=== PATIENT | female | born 1990 | race Caucasian/White ===

== ENCOUNTER 2016-11-18 10:43 | Emergency (ER) | payer OTHER ==
[~2016-11-18] VITALS: Ht 157.5 cm; Wt 85.0 kg
[~2016-11-18 10:43] MED LIST: LEVO1TAB33 PO; MULT-506 PO
[2016-11-18 10:58] VITALS: TEMP 37.2; Ht 157.5 cm; Wt 85.0 kg
--- NOTE | 2016-11-18 11:21 | EMERGENCY ROOM VISIT NOTE ---
History Report prepared by Jose De Jesus: Hira Mallory Under the Supervision of: Dr. Steven German M.D. First contact with patient: 11:04 Chief Complaint: ABDOMINAL PAIN Stated Complaint: LOWER ABD PAIN Nursing Triage Summary: pt here with low abd pain x 4 mos. denies diarrhea or n/v. pt states today is worse, is usually worse with period, which she has now. History of Present Illness The patient is a 25 year old female who presents to the Emergency Room with complaints of intermittent lower abdominal pain beginning about 4 months ago. She notes the pain usually occurs 1 week before her period, but adds that it is not always associated with her period. She reports having pain this morning after waking. The patient indicates that today was the first day that her pain was only on her right side. She still has her appendix and gallbladder, and denies any chance of , though she admits to not being on control. She has given in the past. The patient admits to currently having vaginal bleeding, and denies any chance of retaining a tampon. She does not express concern for an STD. Source of History: patient Onset: about 4 months ago Position: abdomen (lower) Quality: other (abdominal pain) Timing: intermittent Note: The patient notes having vaginal bleeding Review of Systems See HPI for pertinent positives & negatives. A total of 10 systems reviewed and were otherwise negative. Past Medical & Surgical No known medical problems. Family History Cancer Hypertension Seizures Social History Smoking Status: Never Smoker Marital Status: Occupation Status: employed Current/Historical Medications Scheduled Multivitamin (Multivitamin), 2 TAB PO DAILY Allergies Coded Allergies: Penicillins (Verified Allergy, Intermediate, SWELLING, 11/18/16) Sulfa Drugs (Verified Allergy, Intermediate, SWELLING, 11/18/16) Sulfamethoxazole (Verified Allergy, Intermediate, SWELLING, 11/18/16) Trimethoprim (Verified Allergy, Intermediate, SWELLING, 11/18/16) Physical Exam Vital Signs Date Time Temp Pulse Resp B/P Pulse Ox O2 Delivery O2 Flow Rate FiO2 11/18/16 13:38 75 18 109/72 98 11/18/16 12:21 74 18 115/74 100 Room Air 11/18/16 12:17 99 11/18/16 10:58 37.2 90 16 130/74 95 Room Air Physical Exam GENERAL: Patient is a healthy-appearing well-nourished HEAD: Normocephalic atraumatic EYES: Ocular movements intact pupils equal and react to light OROPHARYNX mucous membranes are moist no exudates present no erythema or edema present NECK: Supple no nuchal rigidity CHEST: Good equal expansion LUNGS: Clear and equal to auscultation CARDIAC: Normal S1 and S2 ABDOMEN: Right sided pelvic pain. No rebound or guarding. BACK: No CVA tenderness EXTREMITIES: No pain upon palpation normal muscle strength in all groups no clubbing cyanosis or edema NEURO: Patient is following commands is answering questions appropriately. Alert and oriented x3 Cranial Nerves 2-12 grossly intact Medical Decision & Procedures ER Provider Diagnostic Interpretation: Radiology results as stated below per my review and radiologist interpretation: PELVIC ULTRASOUND FINDINGS: The uterus measures 8.8 x 5.3 x 6.4 cm. The endometrium measures 7 mm in thickness. Slight heterogeneity of the myometrium is suboptimally assessed on this transabdominal exam. No discrete uterine lesion is identified. The right ovary measures 3.2 x 2.5 x 2.7 cm and the left measures 4.3 x 2.3 x 2.9 cm. Color flow is identified within each ovary. A small amount of fluid was noted within the pelvis. IMPRESSION: 1. Unremarkable transabdominal pelvic ultrasound. 2. Small amount of fluid within the pelvis which is likely physiologic. Electronically signed by: Raj Bolaños M.D. 11/18/2016 12:56 PM Dictated Date/Time: 11/18/2016 12:54 PM Laboratory Results 11/18/16 11:40 Red Blood Count 4.37, Mean Corpuscular Volume 90.4, Mean Corpuscular Hemoglobin 31.8, Mean Corpuscular Hemoglobin Concent 35.2, Mean Platelet Volume 9.1, Neutrophils (%) (Auto) 66.2, Lymphocytes (%) (Auto) 24.8, Monocytes (%) (Auto) 6.9, Eosinophils (%) (Auto) 1.6, Basophils (%) (Auto) 0.4, Neutrophils # (Auto) 4.47, Lymphocytes # (Auto) 1.68, Monocytes # (Auto) 0.47, Eosinophils # (Auto) 0.11, Basophils # (Auto) 0.03 11/18/16 11:40 Test 11/18/16 11:35 11/18/16 11:40 Urine Color YELLOW Urine Appearance TURBID (CLEAR) Urine pH >= 9.0 (4.5-7.5) Urine Specific [place] 1.021 (1.000-1.030) Urine Protein NEG (NEG) Urine Glucose (UA) NEG (NEG) Urine Ketones NEG (NEG) Urine Occult Blood 2+ (NEG) Urine Nitrite NEG (NEG) Urine Bilirubin NEG (NEG) Urine Urobilinogen NEG (NEG) Urine Leukocyte Esterase SMALL (NEG) Urine WBC (Auto) 5-10 /hpf (0-5) Urine RBC (Auto) 10-30 /hpf (0-4) Urine Hyaline Casts (Auto) 1-5 /lpf (0-5) Urine Epithelial Cells (Auto) >30 /lpf (0-5) Urine Bacteria (Auto) 1+ (NEG) Urine Test NEG (NEG) White Blood Count 6.77 K/uL (4.8-10.8) Red Blood Count 4.37 M/uL (4.2-5.4) Hemoglobin 13.9 g/dL (12.0-16.0) Hematocrit 39.5 % (37-47) Mean Corpuscular Volume 90.4 fL (80-100) Mean Corpuscular Hemoglobin 31.8 pg (25-34) Mean Corpuscular Hemoglobin Concent 35.2 g/dl (32-36) Platelet Count 242 K/uL (130-400) Mean Platelet Volume 9.1 fL (7.4-10.4) Neutrophils (%) (Auto) 66.2 % Lymphocytes (%) (Auto) 24.8 % Monocytes (%) (Auto) 6.9 % Eosinophils (%) (Auto) 1.6 % Basophils (%) (Auto) 0.4 % Neutrophils # (Auto) 4.47 K/uL (1.4-6.5) Lymphocytes # (Auto) 1.68 K/uL (1.2-3.4) Monocytes # (Auto) 0.47 K/uL (0.11-0.59) Eosinophils # (Auto) 0.11 K/uL (0-0.5) Basophils # (Auto) 0.03 K/uL (0-0.2) RDW Standard Deviation 42.1 fL (36.4-46.3) RDW Coefficient of Variation 12.7 % (11.5-14.5) Immature Granulocyte % (Auto) 0.1 % Immature Granulocyte # (Auto) 0.01 K/uL (0.00-0.02) Anion Gap 5.0 mmol/L (3-11) Est Creatinine Clear Calc Drug Dose 135.7 ml/min Estimated GFR () 142.5 Estimated GFR (Non- 122.9 BUN/Creatinine Ratio 14.4 (10-20) Calcium Level 8.6 mg/dl (8.5-10.1) Total Bilirubin 0.6 mg/dl (0.2-1) Direct Bilirubin 0.1 mg/dl (0-0.2) Aspartate Amino Transf (AST/SGOT) 17 U/L (15-37) Alanine Aminotransferase (ALT/SGPT) 24 U/L (12-78) Alkaline Phosphatase 43 U/L (45-117) Total Protein 6.2 gm/dl (6.4-8.2) Albumin 3.3 gm/dl (3.4-5.0) Lipase 221 U/L (73-393) Labs reviewed by ED physician. ED Course 1109: Past medical records reviewed. The patient was evaluated in room C12B. A complete history and physical examination was performed. 1320: Upon reexamination the patient is doing well. I discussed results and treatment plan with the patient. She verbalizes agreement and understanding. The patient is ready for discharge. Medical Decision Differential diagnosis: Etiologies such as appendicitis, diverticulitis, PUD, biliary pathology, UTI, pancreatitis, obstruction, mesenteric ischemia, aortic pathology, infections, inflammatory bowel disease, renal colic, as well as others were entertained. This is a 25-year-old female who presents emergency department complaining of right lower pelvic pain. The pelvic pain seems to come and go in relation to the patient's periods. I raised suspect her that this could be endometriosis and the patient's mother seems familiar with this condition. The patient has been ongoing problem and has not followed up with her primary care physician for the issue. She has a normal CBC normal renal profile normal liver profile normal lipase. She is not . She is not having any urinary symptoms. Based on these findings and using shared medical decision making the patient does not want to subject her substitute CAT scan as I feel the yield will be relatively low due to the patient's soft benign abdomen as well as no elevation in her white blood count. The patient was sent for pelvic ultrasound which did not show any evidence of a cyst. The patient refused pain medication emergency department. She was given normal saline bolus. The patient asked for Zofran at home as well as referral to OB. Patient family were in agreement to the treatment plan. Impression Primary Impression: Pelvic pain Scribe Attestation The scribe's documentation has been prepared under my direction and personally reviewed by me in its entirety. I confirm that the note above accurately reflects all work, treatment, procedures, and medical decision making performed by me. Departure Information Dispostion Home / Self-Care Referrals Jeremiah Maciel M.D. (PCP) Patient Instructions ED Pelvic Pain [facility], My [facility] Additional Instructions Follow up with Dr Mauricio's office You received narcotic or benzodiazepene medication while in the emergency room today. Do not drive, operate heavy machinery, or drink alcohol under the influence of this medication. Take 600 mg Ibuprofen every 6 hours Take 1000 mg Tylenol every 6 hours Radiographs and CTs will be reread by a radiologist in the morning. Culture results are usually available in approx 48 hours You have been examined and treated today on an emergency basis only. This is not a substitute for, or an effort to provide, complete comprehensive medical care. It is impossible to recognize and treat all injuries or illnesses in a single emergency department visit. It is therefore important that you follow up closely with Dr Maciel. Call as soon as possible for an appointment. Thank you for your time and consideration. I look forward to speaking with you again soon. Please don't hesitate to call us if you have any questions.
[2016-11-18 12:07] LABS: BASO % 0.4 %; BASO ABS # 0.03 K/uL (0-0.2); COMPLETE YES; EOS % 1.6 %; HEMATOCRIT 39.5 % (37-47); IG% 0.1 %; LYMPH % 24.8 %; LYMPH ABS # 1.68 K/uL (1.2-3.4); MEAN CELL VOLUME 90.4 fL (80-100); MEAN CORPUSCULAR HEMOGLOBIN 31.8 pg (25-34); MEAN CORPUSCULAR HGB CONC 35.2 g/dl (32-36); MEAN PLATELET VOLUME 9.1 fL (7.4-10.4); MONO % 6.9 %; NEUT % 66.2 %; PLATELET COUNT 242 K/uL (130-400); RED BLOOD COUNT 4.37 M/uL (4.2-5.4); WHITE BLOOD COUNT 6.77 K/uL (4.8-10.8)
[2016-11-18 12:16] LABS: URINE APPEARANCE TURBID (CLEAR); URINE BILIRUBIN NEG (NEG); URINE COLOR YELLOW; URINE EPITHELIAL CELL AUTO >30 /lpf (0-5); URINE NITRITE NEG (NEG); URINE PH >= 9.0 (4.5-7.5); URINE SPECIFIC GRAVITY 1.021 (1.000-1.030); UROBILINOGEN NEG (NEG)
[2016-11-18 12:24] LABS: MANUAL MICROSCOPIC REQUIRED? NO; REVIEW REQ? NO
[2016-11-18 12:28] LABS: BUN/CREATININE RATIO 14.4 (10-20); CALCIUM 8.6 mg/dl (8.5-10.1); CREATININE 0.63 mg/dl (0.60-1.20); POTASSIUM 3.9 mmol/L (3.5-5.1)
--- NOTE | 2016-11-18 12:57 | DIAGNOSTIC IMAGING REPORT ---
PELVIC ULTRASOUND CLINICAL HISTORY: Right sided pelvic pain. COMPARISON STUDY: ultrasound March 11, 2007 TECHNIQUE: Transabdominal sonography of the pelvis was performed. The patient deferred transvaginal imaging. FINDINGS: The uterus measures 8.8 x 5.3 x 6.4 cm. The endometrium measures 7 mm in thickness. Slight heterogeneity of the myometrium is suboptimally assessed on this transabdominal exam. No discrete uterine lesion is identified. The right ovary measures 3.2 x 2.5 x 2.7 cm and the left measures 4.3 x 2.3 x 2.9 cm. Color flow is identified within each ovary. A small amount of fluid was noted within the pelvis. IMPRESSION: 1. Unremarkable transabdominal pelvic ultrasound. 2. Small amount of fluid within the pelvis which is likely physiologic. Electronically signed by: Raj Bolaños M.D. 11/18/2016 12:56 PM Dictated Date/Time: 11/18/2016 12:54 PM
[2016-11-18 13:38] VITALS: BP 109/72; PULSE 75; O2SAT 98
== END 2016-11-18 13:39 | disposition home or self-care (01) ==
LOC: C.EDB 10:44 → C.EDC 13:39
DX: R10.2 Pelvic and perineal pain (principal)

== ENCOUNTER 2017-11-21 01:55 | Emergency (ER) | payer OTHER ==
[~2017-11-21] VITALS: Ht 160 cm; Wt 89.6 kg
[~2017-11-21 01:55] MED LIST changes: -LEVO1TAB33 PO
[2017-11-21 01:59] VITALS: Ht 160 cm; Wt 89.6 kg
[2017-11-21 02:20] VITALS: O2SAT 97
[2017-11-21 02:29] LABS: BASO % 0.3 %; BASO ABS # 0.03 K/uL (0-0.2); EOS ABS # 0.18 K/uL (0-0.5); HEMOGLOBIN 14.7 g/dL (12.0-16.0); IG# 0.01 K/uL (0.00-0.02); LYMPH % 39.5 %; MEAN CELL VOLUME 89.3 fL (80-100); MEAN CORPUSCULAR HGB CONC 35.9 g/dl (32-36); MEAN PLATELET VOLUME 8.6 fL (7.4-10.4); MONO % 6.8 %; NEUT % 51.3 %; NEUT ABS # 4.53 K/uL (1.4-6.5); PLATELET COUNT 249 K/uL (130-400); RED CELL DISTRIBUTION WIDTH CV 12.3 % (11.5-14.5); RED CELL DISTRIBUTION WIDTH SD 39.7 fL (36.4-46.3); WHITE BLOOD COUNT 8.85 K/uL (4.8-10.8)
[2017-11-21 02:56] LABS: ALBUMIN 3.4 gm/dl (3.4-5.0); ALT/SGPT 32 U/L (12-78); AST/SGOT 28 U/L (15-37); BLOOD UREA NITROGEN 13 mg/dl (7-18); CALCIUM 8.7 mg/dl (8.5-10.1); CARBON DIOXIDE 28 mmol/L (21-32); CREATININE 0.69 mg/dl (0.60-1.20); GLUCOSE 88 mg/dl (70-99); POTASSIUM 3.7 mmol/L (3.5-5.1); SODIUM 137 mmol/L (136-145)
[2017-11-21 03:03] LABS: ALKALINE PHOSPHATASE 51 U/L (45-117); TOTAL PROTEIN 6.2 gm/dl (6.4-8.2)
--- NOTE | 2017-11-21 03:10 | EMERGENCY ROOM VISIT NOTE ---
History First contact with patient: 02:02 Chief Complaint: IRREGULAR HEARTBEAT Stated Complaint: SOB,IRREGULAR HEARTBEAT Nursing Triage Summary: pt with intermittent heart palpitations for 2 weeks. worse at night. +SOB with palpitations. pt reports she has PCP appt next week but tonight the symptoms were worse and woke her from sleep. denies hx of cardiac problems. History of Present Illness The patient is a 26 year old female who presents to the Emergency Room with complaints of intermittent palpitations and shortness of breath for the past 2 weeks. No recent travel. Patient is on control. She does not smoke. No family history of blood clots. Patient denies chest pain, fever, chills, exertional dyspnea, prolonged palpitations, recent illness, thyroid problems, abdominal pain, lightheadedness or dizziness. Patient is telling p.o. fluids and food. No excessive caffeine use. Patient does not drink or smoke. No drug use. Review of Systems An 10 system review of systems was completed with positives and pertinent negatives listed in the HPI. Past Medical/Surgical History None Family History Cancer Hypertension Seizures Social History Smoking Status: Never Smoker Smokeless Tobacco Use: No Alcohol Use: none Drug Use: none Marital Status: Housing Status: lives with family Occupation Status: employed Current/Historical Medications No Active Prescriptions or Reported Meds Physical Exam Vital Signs Date Time Temp Pulse Resp B/P (MAP) Pulse Ox O2 Delivery O2 Flow Rate FiO2 11/21/17 02:20 97 Room Air 11/21/17 02:13 83 11/21/17 02:11 97 Room Air 11/21/17 01:59 36.9 77 18 130/84 97 Room Air Physical Exam VITALS: Vitals are noted on the nurse's note and reviewed by myself. Vital signs stable. GENERAL: Pleasant female, in no acute distress, nondiaphoretic, well-developed well-nourished. SKIN: The skin was without rashes, erythema, edema, or bruising. There is no tenting of the skin. Capillary reflex less than 2 seconds. HEAD: Normocephalic atraumatic. EARS: External auditory canals clear, tympanic membranes pearly chatman without erythema or effusion bilaterally. EYES: Pupils equal round and reactive to light and accommodation. Conjunctivae without injection, sclerae without icterus. Extraocular movements intact. NOSE: Patent, turbinates without inflammation or discharge. MOUTH: Mucous membranes moist. Pharynx without erythema or exudate. Uvula midline. Airway patent. Tongue does not deviate. NECK: Supple without nuchal rigidity. No lymphadenopathy. No thyromegaly. Cervical spine is nontender. No JVD. HEART: Regular rate and rhythm without murmurs gallops or rubs. LUNGS: Clear to auscultation bilaterally without wheezes, rales or rhonchi. No retractions or accessory muscle use. ABDOMEN: Positive bowel sounds x 4. Normal tympanic percussion. Soft, nontender, without masses or organomegaly. Bryson sign negative. No guarding or rebound tenderness. No CVA tenderness MUSCULOSKELETAL: No muscle atrophy, erythema, or edema noted. NEURO: Patient was alert and oriented to person place and time. Normal sensation to light and sharp touch. No focal neurological deficits. Medical Decision & Procedures Laboratory Results 11/21/17 02:18 Red Blood Count 4.59, Mean Corpuscular Volume 89.3, Mean Corpuscular Hemoglobin 32.0, Mean Corpuscular Hemoglobin Concent 35.9, Mean Platelet Volume 8.6, Neutrophils (%) (Auto) 51.3, Lymphocytes (%) (Auto) 39.5, Monocytes (%) (Auto) 6.8, Eosinophils (%) (Auto) 2.0, Basophils (%) (Auto) 0.3, Neutrophils # (Auto) 4.53, Lymphocytes # (Auto) 3.50, Monocytes # (Auto) 0.60, Eosinophils # (Auto) 0.18, Basophils # (Auto) 0.03 11/21/17 02:18 Test 11/21/17 02:18 White Blood Count 8.85 K/uL (4.8-10.8) Red Blood Count 4.59 M/uL (4.2-5.4) Hemoglobin 14.7 g/dL (12.0-16.0) Hematocrit 41.0 % (37-47) Mean Corpuscular Volume 89.3 fL (80-100) Mean Corpuscular Hemoglobin 32.0 pg (25-34) Mean Corpuscular Hemoglobin Concent 35.9 g/dl (32-36) Platelet Count 249 K/uL (130-400) Mean Platelet Volume 8.6 fL (7.4-10.4) Neutrophils (%) (Auto) 51.3 % Lymphocytes (%) (Auto) 39.5 % Monocytes (%) (Auto) 6.8 % Eosinophils (%) (Auto) 2.0 % Basophils (%) (Auto) 0.3 % Neutrophils # (Auto) 4.53 K/uL (1.4-6.5) Lymphocytes # (Auto) 3.50 K/uL (1.2-3.4) Monocytes # (Auto) 0.60 K/uL (0.11-0.59) Eosinophils # (Auto) 0.18 K/uL (0-0.5) Basophils # (Auto) 0.03 K/uL (0-0.2) RDW Standard Deviation 39.7 fL (36.4-46.3) RDW Coefficient of Variation 12.3 % (11.5-14.5) Immature Granulocyte % (Auto) 0.1 % Immature Granulocyte # (Auto) 0.01 K/uL (0.00-0.02) Anion Gap 7.0 mmol/L (3-11) Est Creatinine Clear Calc Drug Dose 128.9 ml/min Estimated GFR () 137.3 Estimated GFR (Non- 118.5 BUN/Creatinine Ratio 19.0 (10-20) Calcium Level 8.7 mg/dl (8.5-10.1) Magnesium Level 1.9 mg/dl (1.8-2.4) Total Bilirubin 0.3 mg/dl (0.2-1) Direct Bilirubin < 0.1 mg/dl (0-0.2) Aspartate Amino Transf (AST/SGOT) 28 U/L (15-37) Alanine Aminotransferase (ALT/SGPT) 32 U/L (12-78) Alkaline Phosphatase 51 U/L (45-117) Troponin I < 0.015 ng/ml (0-0.045) Total Protein 6.2 gm/dl (6.4-8.2) Albumin 3.4 gm/dl (3.4-5.0) Thyroid Stimulating Hormone (TSH) 2.360 uIu/ml (0.300-4.500) Human Chorionic Gonadotropin, Qual NEG (NEG) Chemistry Specimen Hemolysis ED Course Prior records/ancillary studies reviewed. Triage Nursing notes reviewed. The patient's history was concerning for palpitations. Differential diagnosis: Etiologies such as premature contractions, electrolyte abnormality, cardiac dysrhythmia, thyroid dysfunction, pulmonary embolism, infection, gastrointestinal, as well as others were entertained. Physical examination: Benign as above. ER treatment provided: Patient was observed On reassessment the patient felt better. Diagnostic interpretation by me: Cardiac monitoring revealed no dysrhythmia. The electrocardiogram was negative for pathologic change. Normal sinus, normal intervals, no acute ST-T wave changes. Impression normal sinus rhythm interpreted by myself The labs revealed euthyroid. Negative d-dimer which was done point of care and did not crossover but was 415. Negative troponin. Negative ECG Imaging studies: Chest x-ray with no acute consolidation, pneumothorax or free of my interpretation. HEART SCORE: Hx: high/mod/low suspicion: 0 ECG: ST depression/nonspecific changes/normal: 0 Age: Greater than 65/45-64/less than 45: 0 Risk factors: (Hypertension, hyperlipidemia, diabetes, coronary disease, tobacco use, cocaine use): 0 Troponin: Greater than 2 times normal limits/1-2 times normal limits/normal: 0 Total: 0 This appears to be consistent with intermittent palpitations and shortness of breath most likely from PVCs. Patient had an unremarkable workup. She is an appointment next week with her family care doctor. She is advised to get a Holter monitor. Patient had a normal EKG. Euthyroid and a negative d-dimer. Patient was neurovascularly and neurologically intact. She is well-appearing. She is advised to follow-up as scheduled with her family doctor or here in the ER sooner for prolonged palpitations, chest pain, difficulty breathing, worsening signs or symptoms or as needed. By the evaluation outlined above emergent etiologies such as electrolyte abnormality, cardiac dysrhythmia, thyroid dysfunction, pulmonary embolism, infection, as well as others were deemed relatively unlikely. The pt informed about the findings as listed above. All questions were answered and pleased with the treatment. Return instructions were outlined and the patient was discharged in stable condition. Case reviewed with my attending Referral: The patient was referred back to their primary care physician for follow-up in 2 to 3 days for a recheck of the current condition The chart was completed utilizing [employer] voice recognition software. Grammatical errors, random word insertions, pronoun errors, and incomplete sentences are an occassional consequence of this system due to software limitations, ambient noise, and hardware issues. Any formal questions or concerns about the content, text, or information contained within the body of this dictation should be directly addressed to the physician assistant engineer for clarification. Medical Decision As above Medication Reconcilliation Current Medication List: was personally reviewed by me Blood Pressure Screening Patient's blood pressure: Normal blood pressure Impression Primary Impression: Palpitations Departure Information Dispostion Home / Self-Care Condition GOOD Prescriptions No Active Prescriptions or Reported Meds Referrals Jeremiah Maciel M.D. (PCP) Patient Instructions My [facility] Additional Instructions Recommend outpatient Holter monitor. Decrease caffeine, alcohol, tobacco and salt intake. Avoid stimulants near bedtime. Ibuprofen(Motrin, Advil) may be used for fever or pain. Use 600mg every six hours as needed. Take with food. Avoid using more than 2400mg in a 24 hour period. Do not use 2400mg per day for more than three consecutive days without physician direction. Prolonged inappropriate use can lead to stomach upset or ulcers. (AND/OR) Acetaminophen(Tylenol) may be used for fever or pain. Use 1000mg every six hours as needed. Avoid using more than 3000mg in a 24 hour period. Rest and drink plenty of fluids as tolerated. Continue current medications. Avoid strenuous activities and anything that worsens your symptoms. Resume normal activities once your symptoms resolve. Return to the ER immediately for worsening or persistent prolonged palpitations , abdominal pain, vomiting, fevers, chest pains, difficulty breathing, worsening of your condition, or as needed. Follow up with your primary physician in 2-3 days for a recheck of your current condition.
[2017-11-21 03:17] VITALS: BP 125/80; PULSE 80; TEMP 36.8; O2SAT 97
--- NOTE | 2017-11-21 06:01 | DIAGNOSTIC IMAGING REPORT ---
CHEST ONE VIEW PORTABLE CLINICAL HISTORY: CHEST PAIN dyspnea COMPARISON STUDY: 09/07/2014 FINDINGS: The bones soft tissues and hemidiaphragms are normal. The cardiomediastinal silhouette is normal. The lungs are clear. The pulmonary vasculature is normal. IMPRESSION: Negative chest. The above report was generated using voice recognition software. It may contain grammatical, syntax or spelling errors. Electronically signed by: Jeremiah Jackson M.D. 11/21/2017 5:59 AM Dictated Date/Time: 11/21/2017 5:58 AM
== END 2017-11-21 03:18 | disposition home or self-care (01) ==
LOC: C.EDB 01:56
DX: R00.2 Palpitations (principal); Z79.3 Long term (current) use of hormonal contraceptives; Z82.49 Family history of ischemic heart disease and other diseases of the circulatory system; Z82.0 Family history of epilepsy and other diseases of the nervous system